=== PATIENT | female | born 1955 | race Caucasian/White ===

== ENCOUNTER → 2016-05-18 | Outpatient (CLI) | payer OTHER ==
[~2016-05-18] MED LIST: BACL10TA PO; DICL100T5 PO; LAMO200T38 PO; POTA10TA PO
[2016-05-18 15:38] LABS: BASO % 0.5 %; BASO ABS # 0.04 K/uL (0-0.2); COMPLETE YES; EOS % 3.6 %; HEMATOCRIT 39.9 % (37-47); IG% 0.2 %; LYMPH % 19.7 %; LYMPH ABS # 1.68 K/uL (1.2-3.4); MEAN CELL VOLUME 91.9 fL (80-100); MEAN CORPUSCULAR HEMOGLOBIN 30.6 pg (25-34); MEAN CORPUSCULAR HGB CONC 33.3 g/dl (32-36); MEAN PLATELET VOLUME 10.6 fL (7.4-10.4); MONO % 4.6 %; NEUT % 71.4 %; PLATELET COUNT 351 K/uL (130-400); RED BLOOD COUNT 4.34 M/uL (4.2-5.4); WHITE BLOOD COUNT 8.54 K/uL (4.8-10.8)
[2016-05-18 15:59] LABS: ALT/SGPT 24 U/L (12-78); AST/SGOT 14 U/L (15-37); BLOOD UREA NITROGEN 18 mg/dl (7-18); BUN/CREATININE RATIO 14.7 (10-20); CALCIUM 9.5 mg/dl (8.5-10.1); CARBON DIOXIDE 31 mmol/L (21-32); CHLORIDE 105 mmol/L (98-107); GLUCOSE 94 mg/dl (70-99); POTASSIUM 3.9 mmol/L (3.5-5.1); SODIUM 142 mmol/L (136-145)
[2016-05-18 16:08] LABS: ALB/GLOB RATIO 1.6 (0.9-2); ALKALINE PHOSPHATASE 129 U/L (45-117); CHOLESTEROL 283 mg/dl (0-200); CHOLESTEROL/HDL RATIO 4.4; HDL CHOLESTEROL 65 mg/dl; LDL CHOLESTEROL CALCULATED 186 mg/dl; TRIGLYCERIDES 158 mg/dl (0-150); VERY LOW DENSITY LIPOPROT CALC 32 mg/dl
== END | disposition home or self-care (01) ==
LOC: C.LAB1850 14:24
PROVIDERS: ATTEND Internal Medicine
DX: R56.9 Unspecified convulsions (principal); E78.00 Pure hypercholesterolemia, unspecified; E87.6 Hypokalemia; Z11.59 Encounter for screening for other viral diseases; R53.82 Chronic fatigue, unspecified

== ENCOUNTER → 2017-05-04 | Outpatient (CLI) | payer OTHER ==
[~2017-05-04] MED LIST changes: +LAMO200T35 PO; -LAMO200T38 PO
[2017-05-04 13:15] LABS: ALBUMIN 4.7 gm/dl (3.4-5.0); ALT/SGPT 44 U/L (12-78); AST/SGOT 17 U/L (15-37); BLOOD UREA NITROGEN 14 mg/dl (7-18); CALCIUM 9.6 mg/dl (8.5-10.1); CARBON DIOXIDE 26 mmol/L (21-32); CREATININE 1.18 mg/dl (0.60-1.20); GLUCOSE 101 mg/dl (70-99); POTASSIUM 3.5 mmol/L (3.5-5.1); SODIUM 135 mmol/L (136-145)
[2017-05-04 13:18] LABS: ALKALINE PHOSPHATASE 115 U/L (45-117); CHOLESTEROL 280 mg/dl (0-200); LDL CHOLESTEROL CALCULATED 210 mg/dl; TOTAL PROTEIN 8.2 gm/dl (6.4-8.2)
== END | disposition home or self-care (01) ==
LOC: C.LAB1850 10:20
PROVIDERS: ATTEND Psychiatry & Neurology Neurology
DX: E55.9 Vitamin D deficiency, unspecified (principal); E78.6 Lipoprotein deficiency; E78.00 Pure hypercholesterolemia, unspecified; R56.9 Unspecified convulsions